=== PATIENT | female | born 1985 | race Caucasian/White ===

== ENCOUNTER 2023-12-16 18:12 | Emergency (ER) | payer OTHER, SELFPAY ==
[2023-12-16 18:15] VITALS: BP 128/88; PULSE 94; RESP 16; TEMP 37.3; O2SAT 94; BMI 47.5
[2023-12-16 18:23] VITALS: BP 128/88; PULSE 87; O2SAT 93
[2023-12-16 18:30] VITALS: BP 142/92; PULSE 82; O2SAT 95
--- NOTE | 2023-12-16 18:44 | HMH.EDGENADL ---
Discharge Plan Disposition Patient Disposition: Home, Self-Care Prescriptions Prescriptions: New promethazine 12.5 mg suppository 12.5 mg MN TID PRN (Reason: nausea and vomiting) Qty: 12 0RF Rx Instructions: do not give 3rd daily dose after evening meal or within 4hr before bed promethazine 25 mg tablet 25 mg PO TID PRN (Reason: nausea and vomiting) 5 Days Qty: 20 0RF ondansetron 4 mg tablet,disintegrating 4 mg PO Q6H PRN (Reason: nausea and vomiting) 5 Days Qty: 20 0RF cetirizine 10 mg tablet 10 mg PO DAILY Qty: 30 3RF Referrals Follow up/Referrals: Provider,Referral, MD [Primary Care Provider] - See instructions Clinical Impressions Clinical Impression: Nausea, Dehydration, mild, Seasonal allergies Print Language Print Language: Faroese Discharge ED Provider: Felix Castano General Adult HPI General Chief complaint: Upper Respiratory Infection Stated complaint: Nausea,sweating,poor appitite,BEAN Time Seen by Provider: 12/16/23 18:19 Mode of Arrival: Ambulatory Source of Information: Patient Limitations: No Limitations Description of Symptoms (Recalled from ER Triage Doc. by RN): pt presents to the er for itchy throat, coughing, nausea, decreased appetite, headaches, sneezing, and stomach ache for the last week, rates pain in stomach intermittent and 3/10 History of Present Illness HPI narrative: Patient is a 38-year-old presented today with multiple complaints. She states she has been having some sneezing some itchiness in her throat she has chronic seasonal allergies that typically is improved with Xyzal and she has been on Claritin in the past but has not been on that recently. She also states she has had some nausea but no vomiting no diarrhea. No significant abdominal pain she has had a headache that was completely resolved with her triptan injection earlier today and that is gone at this point. Denies any fevers or chills or cough and also has had a bit of a scratchy throat this been ongoing for the last week. She states that her friend who is with her made her come to the hospital today get evaluated. Related Data Previous Rx's ?Medication ?Instructions ?Recorded cetirizine 10 mg tablet 10 mg PO DAILY #30 tabs 12/16/23 ondansetron 4 mg disintegrating 4 mg PO Q6H PRN nausea and 12/16/23 tablet vomiting 5 days #20 tabs promethazine 12.5 mg rectal 12.5 mg MN TID PRN nausea and 12/16/23 suppository vomiting #12 ea promethazine 25 mg tablet 25 mg PO TID PRN nausea and 12/16/23 vomiting 5 days #20 tabs Allergies Allergy/AdvReac Type Severity Reaction Status Date / Time No Known Allergies Allergy Verified 12/16/23 18:32 [facility] Disclaimer: The information contained in this section may have been updated after the patient was seen, as this information can be updated by other users. Social History Smoking Status: Never smoker alcohol intake: never current occupational status: other Travel in the last 8 weeks: None ROS Obtained: Yes All systems reviewed & no additional complaints except as documented Physical Exam General General appearance: alert and in no apparent distress ENT ENT exam: Present normal exam, normal oropharynx and TM's normal bilaterally Respiratory Respiratory exam: Present normal lung sounds bilaterally; Absent respiratory distress Cardiovascular Cardiovascular exam: Present regular rate and normal rhythm Abdominal Exam Abdominal exam: Present soft; Absent distention or tenderness Neurological Exam Neurological exam: Present alert and oriented X3 Medical Decision Making Gary Inquiry Pt receiving controlled substance: No Vital Signs: 12/16/23 18:15 Temperature 99.1 F Temperature Source Oral Pulse Rate [Left Radial] 94 H Respiratory Rate 16 Blood Pressure [Right Arm] 128/88 Blood Pressure Mean [Right Arm] 101 Blood Pressure Source [Right Arm] Automatic Cuff Blood Pressure Position [Right Arm] Sitting 02 Sat by Pulse Oximetry 94 L Oxygen Delivery Method Room Air Medical Decision Narrative: 38-year-old female with above history and physical. Objectively her exam is completely normal. Sounds that she is having multiple complaints today including possibly a viral syndrome and may be some seasonal allergy type symptoms. No definitive evidence of an infection. If this is viral no indication for determine the exact etiology of the symptoms is ongoing for 1 week there to be no indication for any antiviral medications in this patient. Also her symptoms or not consistent with acute strep pharyngitis. Her headache is completely resolved earlier. She is not clinically dehydrated has been able to tolerate some fluids and states that her nausea has been resolved with some Zofran at home but she is almost out of that. Overall no indication for any emergency testing or treatments symptomatic medications have been prescribed including Zofran and Phenergan and Phenergan suppository just in case she is not able to tolerate fluids by mouth. She has been advised to return to the emergency department any significant worsening abdominal pain inability to tolerate p.o. or any other concerns. Additionally I was able to prescribe to her an antihistamine for her chronic seasonal allergies which she states she needed to be prescribed because she cannot get this [id number] due to insurance issues. She was discharged in stable condition. Critical Care Critical Care Time Critical Care Time: No
[2023-12-16 18:51] VITALS: BP 127/77; PULSE 88; RESP 16; TEMP 36.7; O2SAT 100
== END 2023-12-16 18:52 | disposition home or self-care (01) ==
PROVIDERS: Emergency Provider Student in an Organized Health Care Education/Training Program
DX: E86.0 Dehydration (principal); R11.0 Nausea; J30.2 Other seasonal allergic rhinitis
CPT/HCPCS: 99283